=== PATIENT | male | born 1970 | race Caucasian/White ===

== ENCOUNTER 2017-02-03 05:31 | Day surgery (SDC) | payer BC, OTHER ==
[~2017-02-03] VITALS: Ht 180.3 cm; Wt 72.6 kg
--- NOTE | ~2017-02-03 | O ---
[facility] [place] [address] OPERATIVE REPORT Name: BROOKS PLATA Room #: 150-3 [facility] M..#: [id number] Admission: 02/03/17 Attend Phys: Brandon Hairston MD Discharge: Date of : 72 Report #: [id number] THIS REPORT FOR: //name// CC: [facility] physician/PCP Brandon Hairston PREOPERATIVE DIAGNOSIS: Right ankle anterior impingement. POSTOPERATIVE DIAGNOSIS: Right ankle anterior impingement. PROCEDURE: 1. Right ankle arthroscopic debridement with synovectomy. 2. Right ankle arthroscopic anterior osteophyte excision. 3. Right ankle manipulation under anesthesia. ESTIMATED BLOOD LOSS: 5 mL. DRAINS: None. TOURNIQUET: None. COMPLICATIONS: None. SURGEON: Brandon Hairston M.D. ANESTHESIA: General. VOLTAGE TESTER: ____. DESCRIPTION OF PROCEDURE: The patient brought to the operating room where he is placed under general anesthesia. Once under adequate general anesthesia, he was placed into an arthroscopic right ankle thigh support. The right ankle was then prepped and draped in a sterile manner. The extremity was elevated, exsanguinated, tourniquet placed to 300 mmHg. A Guhl ankle distractor was then placed across the joint. An anteromedial and anterolateral arthroscopic portal was made in usual fashion. Examination of the joint noted significant synovitis in the anterior joint in particular. He did have an area of missing cartilage anteriorly overlying his anteromedial joint, which was arthritic. He had abundant soft tissue scarring, which was then removed with the arthroscopic shaver and a synovectomy was performed anteriorly completely with the arthroscopic shaver. There was a large anterior osteophyte as well, which was removed with an arthroscopic hunter. Once complete, the joint was able to be manipulated to dorsal flexion of 20 degrees. This is much improved from his prior status; therefore, the wound was irrigated copiously, the arthroscopic ____ was removed and the wounds were closed with doug for the skin and dressed with Xeroform, 4 x 4s and sterile soft compressive dressing. Tourniquet was let down to approximately 30 minutes. Toes were pink and warm with good [facility] [address] [address] OPERATIVE REPORT Name: BROOKS PLATA Room #: 150-3 [facility] M.R.#: [id number] Admission: 02/03/17 Attend Phys: Brandon Hairston MD Discharge: Date of : 72 Report #: [id number] capillary refill. There were no complications from the procedure. The patient tolerated the procedure well and went to recovery room without incident. By: [id number] Brandon Hairston MD /nt
[~2017-02-03 05:31] MED LIST: PERCOCET 7.5-31 EACH PO
[2017-02-03 07:10] VITALS: BP 106/56
[2017-02-03 08:50] VITALS: BP 106/56
== END 2017-02-03 10:30 | disposition home or self-care (01) ==
LOC: OR 05:31 → TBA 05:31 → OR 09:10
DX: M25.871 Other specified joint disorders, right ankle and foot (principal); M65.871 Other synovitis and tenosynovitis, right ankle and foot; M25.371 Other instability, right ankle; Z98.890 Other specified postprocedural states
CPT/HCPCS: 50010; 50101; 50386; 50950; 51038; 51412; 51647; 55430; 57091; 62110; 62900; 70005